=== PATIENT | female | born 1960 | race African-American/Black ===

== ENCOUNTER 2021-04-04 13:03 | Outpatient (CLI) | payer BC, OTHER ==
[2021-04-04 13:24] LABS: Estimated GFR-MDRD - POC Greater than 90
== END 2021-04-04 13:04 | disposition home or self-care (01) ==
LOC: BICCT 13:03
PROVIDERS: ATTEND Family Medicine
DX: R22.2 Localized swelling, mass and lump, trunk (principal); R91.1 Solitary pulmonary nodule; R59.0 Localized enlarged lymph nodes
CPT/HCPCS: 71260; 82565

== ENCOUNTER 2021-04-26 14:47 | Outpatient (CLI) | payer OTHER ==
[2021-04-26 15:30] LABS: #Eosinphils 0.1 10x3/uL (0.0-0.5); #Monocytes 0.7 10x3/uL (0.0-1.1); #Neutrophils 4.7 10x3/uL (1.5-8.4); %Basophils 0.3 % (0.0-2.0); %Eosinophils 1.3 % (0.0-6.0); %Lymphocytes 26.5 % (18.0-47.0); %Monocytes 9.2 % (0.0-10.0); %Neutrophils 62.4 % (40.0-75.0); Hemoglobin 11.8 g/dL (12.0-15.5); Mean Corpuscular Volume 87.4 fl (81.6-98.3); Mean Platelet Volume 10.5 fl (7.4-10.4); Platelet Count 306 10x3/uL (150-450); Red Blood Cell (RBC) Count 4.22 10x6/uL (3.90-5.03); White Blood Cell (WBC) Count 7.5 10x3/uL (3.5-10.5)
[2021-04-26 15:53] LABS: ALT (SGPT) 18 U/L (8-55); AST (SGOT) 18 U/L (5-34); Alkaline Phosphatase 67 U/L (40-110); Anion Gap 10 mmol/L (10-20); BUN (Urea Nitrogen) 13 mg/dL (9.8-20.1); Bilirubin, Total 0.2 mg/dL (0.2-1.2); Calc. Creatinine Clearance 0 mL/min (70-130); Calcium 9.7 mg/dL (7.8-10.44); Carbon Dioxide 30 mmol/L (23-31); Chloride 102 mmol/L (98-107); Globulin 3.4 g/dL (2.4-3.5); Glucose 85 mg/dL (80-115); Potassium 4.3 mmol/L (3.5-5.1); Protein, Total 7.4 g/dL (5.8-8.1); Sodium 138 mmol/L (136-145)
[2021-04-26 23:35] LABS: SARS-CoV-2 PCR by NAA DETECTED (NotDetected)
== END 2021-04-26 14:48 | disposition home or self-care (01) ==
LOC: LABBT 14:47
PROVIDERS: ATTEND Surgery
DX: U07.1 COVID-19 (principal); Z01.818 Encounter for other preprocedural examination; R59.0 Localized enlarged lymph nodes
CPT/HCPCS: 80053; 85025; 93005; 93010; U0003; U0005

== ENCOUNTER 2021-05-29 06:50 | Day surgery (SDC) | payer OTHER ==
[2021-05-24 09:50] VITALS: BMI 30.9
[2021-05-29] MEDS ORDERED: Xylocaine 1% w/ Epi 1:100K 10 ML VIAL ONE (08:27)
[2021-05-29] MEDS ORDERED: Bupivacaine PF 0.5% 30 ML VIAL ONE (08:27)
[2021-05-29] MEDS ORDERED: Bupivacaine 0.25% HCL 30 ML VIAL ONE (08:27)
[2021-05-29] MEDS ORDERED: Fentanyl 250 MCG/5 ML VIAL ONE (08:29)
[2021-05-29] MEDS ORDERED: ceFAZolin 2 GM/DEX 5% 100 ML BAG ONE (08:39)
[2021-05-29] MEDS ORDERED: PROPOFOL 200 MG/20 ML VIAL ONE (08:48)
[2021-05-29] MEDS ORDERED: Ondansetron PF 4 MG/2 ML Vial ONE (08:48)
[2021-05-29] MEDS ORDERED: Lidocaine 1% PF 5 ML VIAL ONE (08:48)
[2021-05-29] MEDS ORDERED: Dexamethasone 20 MG/5 ML VIAL ONE (08:48)
== END 2021-05-29 10:53 | disposition home or self-care (01) ==
LOC: SDC 06:50
PROVIDERS: ATTEND Surgery
PROC: 07B10ZX Excision of Right Neck Lymphatic, Open Approach, Diagnostic (ICD-10-PCS; principal; 2021-05-29)
DX: C81.11 Nodular sclerosis Hodgkin lymphoma, lymph nodes of head, face, and neck (principal); I10 Essential (primary) hypertension; Z87.891 Personal history of nicotine dependence; Z79.899 Other long term (current) drug therapy
CPT/HCPCS: 88184; 88307; 88341; 88342; J1100; J2405; J2704; J3010; S0020

== ENCOUNTER 2021-06-08 10:18 | Outpatient (CLI) | payer OTHER ==
[2021-06-08 12:35] LABS: #Eosinphils 0.2 10x3/uL (0.0-0.5); #Monocytes 0.5 10x3/uL (0.0-1.1); #Neutrophils 3.4 10x3/uL (1.5-8.4); %Basophils 0.5 % (0.0-2.0); %Eosinophils 3.4 % (0.0-6.0); %Lymphocytes 30.7 % (18.0-47.0); %Monocytes 7.7 % (0.0-10.0); %Neutrophils 57.5 % (40.0-75.0); Mean Corpuscular Hemoglobin 28.2 pg (27.0-33.0); Mean Platelet Volume 11.8 fl (7.4-10.4); Platelet Count 277 10x3/uL (150-450); RBC Distribution Width 14.4 % (11.5-14.5); Red Blood Cell (RBC) Count 4.26 10x6/uL (3.90-5.03)
[2021-06-08 12:56] LABS: Anion Gap 11 mmol/L (10-20); BUN (Urea Nitrogen) 8 mg/dL (9.8-20.1); Calc. Creatinine Clearance 0 mL/min (70-130); Calcium 9.2 mg/dL (7.8-10.44); Carbon Dioxide 29 mmol/L (23-31); Chloride 103 mmol/L (98-107); Glucose 117 mg/dL (80-115); Potassium 4.1 mmol/L (3.5-5.1); Sodium 139 mmol/L (136-145)
[2021-06-08 23:52] LABS: SARS-CoV-2 PCR by NAA Not Detected (NotDetected)
== END 2021-06-08 10:19 | disposition home or self-care (01) ==
LOC: LABBT 10:18
PROVIDERS: ATTEND Surgery
DX: Z01.818 Encounter for other preprocedural examination (principal); C81.90 Hodgkin lymphoma, unspecified, unspecified site; Z20.822 Contact with and (suspected) exposure to COVID-19
CPT/HCPCS: 80048; 85025; 93005; 93010; U0003; U0005

== ENCOUNTER 2021-06-08 11:29 | Outpatient (CLI) | payer OTHER | END 2021-06-08 11:30 | disposition home or self-care (01) | LOC: ULT 11:29 | PROVIDERS: ATTEND Internal Medicine Hematology & Oncology | DX: Z51.11 Encounter for antineoplastic chemotherapy (principal); C81.11 Nodular sclerosis Hodgkin lymphoma, lymph nodes of head, face, and neck; Z79.899 Other long term (current) drug therapy; I08.1 Rheumatic disorders of both mitral and tricuspid valves | CPT/HCPCS: 93306 ==

== ENCOUNTER 2021-06-12 05:42 | Day surgery (SDC) | payer OTHER ==
[2021-06-08 09:49] VITALS: BMI 31.4
[2021-06-12] MEDS ORDERED: Propofol 500 MG/50 ML VIAL ONE (06:09)
[2021-06-12] MEDS ORDERED: Fentanyl 250 MCG/5 ML VIAL ONE (06:09)
[2021-06-12] MEDS ORDERED: Famotidine/PF 20 mg/2ml Vial ONE (06:09)
[2021-06-12] MEDS ORDERED: Bupivacaine 0.25% HCL 30 ML VIAL ONE (06:34)
[2021-06-12] MEDS ORDERED: EPINEPHrine 1 MG/ML AMP ONE (06:35)
[2021-06-12] MEDS ORDERED: ceFAZolin 2 GM/Dextrose 50 ML IVPB ONE (07:11)
== END 2021-06-12 08:50 | disposition home or self-care (01) ==
LOC: SDC 05:42
PROVIDERS: ATTEND Surgery
PROC: 02HV33Z Insertion of Infusion Device into Superior Vena Cava, Percutaneous Approach (ICD-10-PCS; principal; 2021-06-12)
PROC: 0JH60WZ Insertion of Totally Implantable Vascular Access Device into Chest Subcutaneous Tissue and Fascia, Open Approach (ICD-10-PCS; principal; 2021-06-12)
DX: C81.91 Hodgkin lymphoma, unspecified, lymph nodes of head, face, and neck (principal); Z79.899 Other long term (current) drug therapy
CPT/HCPCS: 71045; C1788; J0171; J0690; J1642; J2704; J3010; S0020; S0028

== ENCOUNTER 2021-08-22 11:45 | Outpatient (CLI) | payer OTHER | END 2021-08-22 11:46 | disposition home or self-care (01) | LOC: PET 11:45 | PROVIDERS: ATTEND Internal Medicine Hematology & Oncology | DX: C81.11 Nodular sclerosis Hodgkin lymphoma, lymph nodes of head, face, and neck (principal) | CPT/HCPCS: 78815; A9552 ==

== ENCOUNTER 2022-02-20 13:51 | Outpatient (CLI) | payer OTHER | END 2022-02-20 13:52 | disposition home or self-care (01) | LOC: PET 13:51 | PROVIDERS: ATTEND Internal Medicine Hematology & Oncology | DX: C81.11 Nodular sclerosis Hodgkin lymphoma, lymph nodes of head, face, and neck (principal) | CPT/HCPCS: 78815; A9552 ==

== ENCOUNTER 2022-03-15 09:22 | Outpatient (CLI) | payer OTHER | END 2022-03-15 09:23 | disposition home or self-care (01) | LOC: BICULT 09:22 | PROVIDERS: ATTEND Physician Assistant Medical | DX: C81.90 Hodgkin lymphoma, unspecified, unspecified site (principal); B18.1 Chronic viral hepatitis B without delta-agent | CPT/HCPCS: 76705 ==

== ENCOUNTER 2022-08-07 12:02 | Outpatient (CLI) | payer OTHER ==
[~2022-08-07 12:02] MED LIST: Iopamidol 370 76% 100 ML VIAL ONE
== END 2022-08-07 12:03 | disposition home or self-care (01) ==
LOC: CT 12:02
PROVIDERS: ATTEND Internal Medicine Hematology & Oncology
DX: C81.11 Nodular sclerosis Hodgkin lymphoma, lymph nodes of head, face, and neck (principal); K80.20 Calculus of gallbladder without cholecystitis without obstruction; K11.8 Other diseases of salivary glands; E04.1 Nontoxic single thyroid nodule
CPT/HCPCS: 70491; 71260; 74177; 82565; Q9967

== ENCOUNTER 2023-01-29 13:33 | Outpatient (CLI) | payer OTHER | END 2023-01-29 13:34 | disposition home or self-care (01) | LOC: CT 13:33 | PROVIDERS: ATTEND Internal Medicine Hematology & Oncology | DX: C81.11 Nodular sclerosis Hodgkin lymphoma, lymph nodes of head, face, and neck (principal); B18.1 Chronic viral hepatitis B without delta-agent; K80.20 Calculus of gallbladder without cholecystitis without obstruction; E04.1 Nontoxic single thyroid nodule; R22.1 Localized swelling, mass and lump, neck | CPT/HCPCS: 70491; 71260; 74177; 82565 ==

== ENCOUNTER 2023-09-12 09:44 | Outpatient (CLI) | payer OTHER | END 2023-09-12 09:45 | disposition home or self-care (01) | LOC: BICULT 09:44 | PROVIDERS: ATTEND Radiology Radiation Oncology | DX: E04.2 Nontoxic multinodular goiter (principal) | CPT/HCPCS: 76536 ==